=== PATIENT | female | born 1990 | race Caucasian/White ===

== ENCOUNTER 2024-04-13 09:39 | Outpatient (CLI) | payer OTHER, SELFPAY ==
--- NOTE | 2024-04-13 10:00 | CRLHL7_ITS ---
For Patients: As a result of the Century Cures Act, medical imaging exams and procedure reports are released immediately into your electronic medical record. You may view this report before your referring provider. If you have questions, please contact your health care provider. Indication: Hypertension Technique: Grayscale, color Doppler and power Doppler ultrasound evaluation of the kidneys and renal arteries performed. Comparison: None Findings: The kidneys are symmetric without hydronephrosis or solid mass. No renal stone. The renal cortex is normal bilaterally. The right kidney measures 11.4 cm in length and the left kidney measures 10.9 cm in length. Aorta peak systolic velocity 113 cm/second. Renal artery velocities measure up to 120 cm/second on the right and 134 cm/second on the left. Renal artery ratio 1.2 bilaterally. Resistive indices normal bilaterally. Impression: No evidence of renal artery stenosis. Dictated by Tu Lagunas MD @ 04/15/2024 1:37:42 PM (Electronically Signed)
== END 2024-04-13 09:40 | disposition home or self-care (01) ==
PROVIDERS: PCP Family Medicine; Visit Provider Family Medicine
DX: I10 Essential (primary) hypertension (principal)
CPT/HCPCS: 76775; 93975